=== PATIENT | male | born 1965 | race African-American/Black ===

== ENCOUNTER 2020-12-07 14:33 | Emergency (ER) | payer SELFPAY ==
[~2020-12-07] VITALS: Ht 177.8 cm; Wt 90.7 kg
--- NOTE | 2020-12-07 15:05 | NUR ---
DR MILLER AT BEDSIDE FOR EVAL.
--- NOTE | 2020-12-07 15:20 | NUR ---
RETURNED FROM CT SCAN.
[2020-12-07] MEDS ORDERED: KETOROLAC TROMETHAMINE INJ 30 MG/ML VIAL IM ONE (15:30)
[2020-12-07] MEDS ORDERED: ACETAMINOPHEN ES 500 MG TABLET ONE (15:42)
--- NOTE | 2020-12-07 15:46 | NUR ---
PT REFUSED TORADOL SHOT. REQUESTED TYLENOL INSTEAD. DR MILLER AWARE.
[2020-12-07] MEDS ORDERED: ACETAMINOPHEN ES 500 MG TABLET PO ONE (16:00)
[2020-12-07 16:44] VITALS: BP 136/84
--- NOTE | 2020-12-07 16:44 | NUR ---
Patient discharged to home in stable condition. Written and verbal after care instructions given. Patient verbalizes understanding of instruction.
== END 2020-12-07 16:45 | disposition home or self-care (01) ==
LOC: ER 15:16
DX: R10.84 Generalized abdominal pain (principal); V49.59XA Passenger injured in collision with other motor vehicles in traffic accident, initial encounter; Y93.89 Activity, other specified; Y92.488 Other paved roadways as the place of occurrence of the external cause; Y99.8 Other external cause status